=== PATIENT | female | born 1950 | race Asian ===

== ENCOUNTER 2023-04-15 21:05 | Emergency (ER) | payer MEDICARE, OTHER, SELFPAY ==
[2023-04-15 21:07] VITALS: BP 156/71
[2023-04-15 21:16] VITALS: BMI 25.3
[2023-04-15 21:41] LABS: % Basophils 0.2 % (0-2); % Eosinophils 1.6 % (0-6); % Immature Granulocytes 0.2 % (0-0.5); % Lymphocytes 43.9 % (20.5-51.1); % Monocytes 9.9 % (1.7-9.3); % Neutrophils 44.2 % (42.2-75.2); Absolute Eosinophils 0.1 10^3/uL (0-0.7); Absolute Lymphocytes 2.7 10^3/uL (1.2-3.4); Absolute Monocytes 0.6 10^3/uL (0.1-0.6); Absolute Neutrophils 2.7 10^3/uL (1.4-6.5); Mean Corp Hgb Conc. 34.4 g/dL (33.0-37.0); Mean Corpuscular Hgb 35.4 pg (27.0-31.0); Mean Corpuscular Volume 102.9 fL (81.0-99.0); Mean Platelet Volume 9.7 fL (7.4-10.4); Nucleated Red Blood Cells % 0 %; Platelet Count 221 10^3/uL (130-400); Red Blood Cell Count 3.11 10^6/uL (4.20-5.40); Red Cell Dist. Width 12.8 % (11.5-14.5); White Blood Cell Count 6.2 10^3/uL (4.8-10.8)
[2023-04-15 21:55] LABS: ALT (SGPT) 22 U/L (0-35); AST (SGOT) 34 U/L (14-36); Albumin 4.2 g/dl (3.5-5.0); Alkaline Phosphatase 97 U/L (38-126); Blood Urea Nitrogen 12 mg/dl (7-17); Calcium 8.9 mg/dl (8.4-10.2); Carbon Dioxide 30 mmol/L (22-30); Chloride 101 mmol/L (98-107); Estimated Creatinine Clearance 42 ml/min; Glucose 138 mg/dl (70-99); Potassium 4.3 mmol/L (3.5-5.1); Sodium 132 mmol/L (135-145); Total Bilirubin 0.4 mg/dl (0.2-1.3); Total Protein 7.4 g/dl (6.3-8.2); eGFR > 60.00
[2023-04-15 22:06] LABS: Troponin I 0.025 ng/ml
[2023-04-15 22:20] VITALS: BP 130/67
--- NOTE | 2023-04-15 22:27 | ED.GENMED ---
History of Present Illness
General
Chief Complaint: Dizziness
Source: patient
Time Seen by Provider: 04/15/23 22:00
Travel History
Have you had any contact with someone who has COVID-19?: No
Do you have any symptoms of coronavirus? Fever > 100 degrees, chills, cough, shortness of breath, sore throat, loss of taste or smell, muscle aches, or headache?: No
History of Present Illness
History of Present Illness:
Pleasant 72-year-old female that presents with dizziness. This occurred after eating dinner. She states that she felt dizzy and that the room was not spinning. Daughter states she had an episode of vomiting during the event. Denied chest pain or
shortness of breath. Patient denies previous cardiac history. Daughter notes that the blood pressure was slightly elevated during the event. She was still symptomatic upon arrival to the hospital but after fluids, she states that she is
asymptomatic at this time.
Vital signs are stable. Patient not hypoxic
Nursing note reviewed. I agree with nursing documentation up to this point in time.
Home Meds and allergies reviewed.
NUMBER AND COMPLEXITY OF PROBLEMS ADDRESSED AT THE ENCOUNTER
� Chronic conditions affecting care: Hyperlipidemia, hypotension
� Acute Exacerbation and/or Progression of Chronic Illness:
� Differential Diagnosis includes: Syncope, dizziness, vertigo, posterior CVA
AMOUNT AND/OR COMPLEXITY OF DATA TO BE REVIEWED AND ANALYZED
I performed an independent evaluation of the following and my interpretation is:
EKG: EKG shows sinus bradycardia rate of 55, PACs present. Rate of 55. Otherwise normal intervals, normal axis. No evidence of acute ischemia present. When compared with previous EKG dated May 12, 2021, PACs are present.
CT:
X-rays:
Ultrasound:
Laboratory Studies: First troponin 0.025. We will continue to monitor
Other:
Review of other/old records:
Clinical information was obtained by an independent historian:
Prescriptions/Medications Considered but not given:
Further testing considered but not performed:
RISK OF COMPLICATIONS AND/OR MORBIDITY OR MORTALITY OF PATIENT MANAGEMENT
Social determinants of health affecting care: Good Social Support
Discussion with other providers:
Escalation of care including admission/observation vs risk of discharge considered:
CRITICAL CARE NOTE:
Total Time (exclusive of procedures):
Update:
Past History
Past History
ED Past Medical History: Hypercholesterolemia
ED Past Surgical History:
Social History
Tobacco: Non-smoker
Alcohol: None
Drug: None
Living: with family
Phy Exam
General Physical Exam
General Presentation: well appearing and no apparent distress
General Skin: warm and dry
General Habitus: normal
General Mental: alert
General Hydration: appears well hydrated
ENT Exam
ENT Exam: EOMI, pharynx normal, neck supple and normocephalic
Eye Exam
Eye Exam: PERRL, cornea clear and conjunctiva normal
Cardiovascular Exam
Cardiovascular Exam: regular rate/rhythm, no edema, no murmur and normal peripheral pulses
Pulmonary Exam
Pulmonary Exam: lungs clear, no respiratory distress, no rales, no crackles, no rhonchi, no stridor, no wheezing and no cough
Gastrointestinal Exam
Gastrointestinal Exam: normal bowel sounds, non tender, soft, no organomegaly, no pulsatile mass and non distended
Neurological Exam
Neurological Exam: alert, oriented x3, no motor deficits and speech normal
Cerebellar
Cerebellar Function: normal finger to nose
Musculoskeletal Exam
Musculoskeletal Exam: full ROM and no edema
Skin Exam
Skin Exam: normal color, warm/dry, no rash and no petechia
Psychiatric Exam
Psychiatric Exam: normal mood/affect
Course
Orders/Labs/Results
Orders:
Orders
04/15/23 21:24
Electrocardiogram (*1) Urgent
Reason for Study: Vertigo / Dizzy
CT Head W/o Iv Contrast Urgent
Comment:
Reason For Exam: dizziness
04/15/23 21:25
EKG- Treatment ONCE
04/15/23 21:26
Complete Blood Count/With Diff Urgent
Comprehensive Metabolic Panel Urgent
Troponin I Urgent
Urine Culture Reflexed from UA [Urinalysis Reflex To Culture] Urgent
Date Specimen was Collected: 04/15/23
Time Specimen was Collected: 21:25
04/15/23 22:47
Aspirin 325 mg PO NOW STA
04/15/23 23:42
Electrocardiogram (*1) Urgent
Reason for Study: Vertigo / Dizzy
EKG- Treatment ONCE
04/15/23 23:53
Troponin I Urgent
04/16/23 00:36
Orthostatic VS- Treatment ONCE
Abnormal Lab Results
04/15/23
21:26
RBC 3.11 L 10^6/uL
(4.20-5.40)
Hgb 11.0 L g/dL
(12.0-16.0)
Hct 32.0 L %
(37.0-47.0)
MCV 102.9 H fL
(81.0-99.0)
MCH 35.4 H pg
(27.0-31.0)
Monocytes % 9.9 H %
(1.7-9.3)
Sodium 132 L mmol/L
(135-145)
Glucose 138 H mg/dl
(70-99)
04/15/23 21:26
04/15/23 21:26
Vital Signs
Initial and Last Documented VS:
Initial Vital Signs
Temp Pulse Resp BP Pulse Ox
98.0 F 50 16 156/71 98
04/15/23 21:07 04/15/23 21:07 04/15/23 21:07 04/15/23 21:07 04/15/23 21:07
Last Documented Vital Signs
Temp Pulse Resp BP Pulse Ox
98.0 F 56 20 120/65 97
04/15/23 21:07 04/16/23 02:05 04/16/23 02:05 04/16/23 02:05 04/16/23 02:05
*Critical Care Note
Total Time (30-74mins, 75-104mins- exclusive of procedures): Not Applicable
Update Note
Update Note:
04/16/2023 0205 AM: Discussed disposition with patient. She is currently asymptomatic. Daughter is at the bedside. I explained to patient and daughter that given the current testing, I cannot tell her definitively that she did not have a stroke or
would not have another stroke. She states that her symptoms have completely resolved. I did offer her admission for further testing. At this point, after discussing with daughter, she wishes to be discharged home. I will prescribe aspirin. I
will encourage her to follow-up with neurology. I feel the patient has good understanding of discharge instructions. She does understand that there is a possibility of a return of symptoms or worsening symptoms. She will return to the ER with any
change. Patient has no further questions. Daughter has no further questions. Patient being discharged in improved conditions.
ED Attending Note
-
Portions of this chart may have been created with voice recognition software.� Occasional wrong word or��sound alike� substitutions may have occurred due to the inherent limitations of voice recognition software.
Discharge Plan
Departure
Patient Disposition: Home (Routine Discharge)
Date of Disposition: 04/16/23
Time of Disposition: 02:08
Patient with high blood pressure during this ER visit?: No
Discharge Problem:
Dizziness
Instructions: Dizziness, Nonvertigo, (DC)
Prescriptions:
New
aspirin 81 mg capsule
81 mg PO DAILY Qty: 30 0RF
Referrals:
Sailaja Siddiqi, [Active] - Next open appointment
Savanah Ingram CRNP [Family Provider] -
Activity Restrictions/Additional Instructions:
It was a pleasure meeting you and taking part in your care. We hope for your continued healing and wellness.
Please read discharge instructions in their entirety. However, they are for general education and may not describe your exact diagnosis at discharge. Information on your ER visit and medical conditions were discussed with you along with appropriate
follow up information...
If indicated, please take your medications as instructed and indicated on discharge paperwork.
Please schedule a follow up appointment as directed. Call to schedule an appointment
Please return to the emergency department with ANY change in, persisting, or worsening of symptoms. If any of your symptoms do not improve, or persist, or become more severe within 6-12 hours, please return to the emergency department for further
care.
Please return to the emergency department if you develop a headache, neck pain/stiffness, fever greater than 100.4F, chest pain, shortness of breath, persistent nausea, vomiting, slurred speech, difficulty walking, numbness/tingling, weakness, signs
of infection or any other symptoms that are worrisome to you.
If you have any questions or concerns please do not hesitate to call the Hospital at or E-mail me directly at [email or web address]
Interventions
Interventions:
*Risk Screen - Suicide Last Done: 04/15/23 21:07
*General Assessment Last Done: 04/15/23 21:07
*Neglect/Abuse Screening Last Done: 04/15/23 21:07
ED- Fall Risk Assessment Last Done: 04/15/23 21:07
*ED COVID-19 Vaccine History Last Done: 04/15/23 21:07
*Nursing Disposition Last Done: 04/16/23 02:22
ED- Neurological Assessment Last Done: 04/15/23 22:18
ED- Cardiac Assessment Last Done: 04/15/23 22:18
Discharge Date and Time
Discharge Date/Time: 04/16/23 02:23
[2023-04-15] MEDS: ASPIRIN 325 MG PO (23:51)
[2023-04-16 00:31] LABS: Troponin I < 0.012 ng/ml
[2023-04-16 00:53] VITALS: BP 124/81; BP 136/51; BP 140/77; PULSE 77; PULSE 94; PULSE 96
[2023-04-16 01:06] VITALS: BP 119/51
[2023-04-16 01:28] LABS: Urine Albumin Negative (Neg - Trace); Urine Bilirubin Negative (Negative); Urine Character Clear (Clear); Urine Color Straw; Urine Glucose Negative (Negative); Urine Ketone Negative (Negative); Urine Leukocyte Negative (Negative); Urine Nitrite Negative (Negative); Urine Occult Blood Negative (Negative); Urine Specific Gravity 1.005 (<1.030); Urine Urobilinogen Negative (Neg - 1+)
[2023-04-16 02:05] VITALS: BP 120/65
== END 2023-04-16 02:23 | disposition home or self-care (01) ==
LOC: EMR 21:05
PROVIDERS: Student in an Organized Health Care Education/Training Program; EMERGENCY PHYSICIAN Student in an Organized Health Care Education/Training Program; FAMILY PHYSICIAN Nurse Practitioner Primary Care
DX: R42 Dizziness and giddiness (principal); E78.00 Pure hypercholesterolemia, unspecified
CPT/HCPCS: 99284; 70450; 80053; 81003; 84484; 85025; 93005

== ENCOUNTER 2023-11-21 23:57 | Emergency (ER) | payer MEDICARE, SELFPAY ==
[2023-11-21 23:59] VITALS: BP 120/50
[2023-11-22] MEDS: TORADOL 15 MG IV (00:20)
--- NOTE | 2023-11-22 00:23 | ED.MUSCINJ ---
HPI-Injury
General
Chief Complaint: Extremity Pain (non-traumatic)
Time Seen by Provider: 11/22/23 00:03
History of Present Illness-Injury
Initial Injury comments:
73-year-old female with history of hyperlipidemia presenting to the emergency department for bilateral leg cramping and pain. Patient reports that she flew from the [facility] on Monday, 3 days ago. 3 hours ago, started to have cramping in her
thighs. Notes that she has had issues with this in the past, however not as severe. Denies any numbness or tingling to her extremities. Denies any inciting injury or trauma. Denies any history of blood clots. Denies any chest pain or difficulty
breathing. She has not taken any medication for the symptoms. Denies abdominal pain or GI symptoms. Denies additional acute medical complaints
Past History
Past History
ED Past Medical History: Hypercholesterolemia
ED Past Surgical History:
Social History
Tobacco: Non-smoker
Alcohol: None
Drug: None
Living: with family
Phy Exam
Physical Exam
Physical Exam:
General: Well-appearing, no clinical signs of dehydration, nontoxic and in no acute distress
HEENT: protecting airway
Neck: appears supple
CV: Normal heart rate, regular rhythm
Resp: No accessory muscle use, no increased work of breathing, lungs clear to auscultation bilaterally
Abd: Soft and non-distended, no tenderness to palpation
Extremities: No deformities, no swelling, no erythema, pulses and sensation intact
Neuro: alert, no focal neurologic deficit
: deferred
Rectal: deferred
Psych: Normal affect
Skin: Intact
Injury Course
Orders/Labs/Results
Orders:
Orders
11/22/23 00:11
0.9% Sodium Chloride 1000 ml [Nss] 1,000 ml IV BOLUS
Ketorolac [Toradol] 15 mg IV NOW STA
11/22/23 00:25
CPK [Creatine Phosphokinase] Urgent
Complete Blood Count/With Diff Urgent
Comprehensive Metabolic Panel Urgent
Abnormal Lab Results
11/22/23
00:25
RBC 3.04 L 10^6/uL
(4.20-5.40)
Hgb 10.6 L g/dL
(12.0-16.0)
Hct 30.9 L %
(37.0-47.0)
MCV 101.6 H fL
(81.0-99.0)
MCH 34.9 H pg
(27.0-31.0)
Neutrophils % 31.4 L %
(42.2-75.2)
Lymphocytes % 54.4 H %
(20.5-51.1)
Monocytes % 10.3 H %
(1.7-9.3)
Glucose 117 H mg/dl
(70-99)
Creatine Kinase 343 H U/L
(30-135)
11/22/23 00:25
11/22/23 00:25
MDM/Problems Addressed
MDM/Problems Addressed:
73-year-old female with hyperlipidemia presenting for bilateral leg pain/thigh pain. Vital signs on arrival are normal.
On exam patient is well-appearing, no acute distress or discomfort. Overall benign examination of the lower extremities. No swelling or deformities. No erythema or warmth or infectious findings. No neurovascular compromise with intact sensation
and pulses. No concern for DVT, without active cancer, no bedridden status or major surgery, no calf swelling, entire leg not swollen, no localized tenderness to the leg, no pitting edema. In addition, pain is bilateral, making DVT diagnosis less
likely. Suspect dehydration component versus musculoskeletal component. Will treat with IV fluids and Toradol. Will screen with laboratory analysis including CPK to rule out rhabdomyolysis.
Labs are unremarkable. On reassessment patient is reporting symptom improvement. At this time continue to suspect musculoskeletal quality. Feel stable for discharge with continued outpatient follow-up and supportive therapy. Return precautions
discussed and patient verbalized understanding
*Critical Care Note
Total Time (30-74mins, 75-104mins- exclusive of procedures): Not Applicable
ED Attending Note
-
Portions of this chart may have been created with voice recognition software.� Occasional wrong word or��sound alike� substitutions may have occurred due to the inherent limitations of voice recognition software.
Discharge Plan
Departure
Patient Disposition: Home (Routine Discharge)
Patient with high blood pressure during this ER visit?: No
Condition: Good
Discharge Problem:
Cramps, muscle, general
Instructions: Dehydration, Adult ED, Muscle spasms (muscle cramps)
Prescriptions:
No Action
aspirin 81 mg capsule
81 mg PO DAILY Qty: 30 0RF
Referrals:
UNKNOWN - PT DOES,NOT KNOW [Family Provider] -
Activity Restrictions/Additional Instructions:
You were seen in the emergency department for pain in your legs
You were found to have normal lab work. We suspect that you are having muscle cramps from mild dehydration. Please continue to drink fluids.
Please follow-up closely with your primary care physician.
Return to the emergency department for any worsening of your symptoms, or any development of chest pain, difficulty breathing, abdominal pain with persistent vomiting and inability to tolerate food or liquid by mouth (concern for dehydration),
weakness, headache or confusion, fever greater than 100.4, or any additional symptoms that are concerning to you.
Thank you for choosing [facility].
Interventions
Interventions:
*Risk Screen - Suicide Last Done: 11/21/23 23:59
*General Assessment Last Done: 11/22/23 00:35
*Neglect/Abuse Screening Last Done: 11/22/23 00:35
*ED COVID-19 Vaccine History Last Done: 11/22/23 00:35
*Nursing Disposition Last Done: 11/22/23 01:40
ED-Skin Assessment Last Done: 11/22/23 00:35
ED-Peripheral Vascular Assessment Last Done: 11/22/23 00:35
ED-Musculoskeletal Assessment Last Done: 11/22/23 00:35
Discharge Date and Time
Discharge Date/Time: 11/22/23 01:40
Print Language: TURKISH
[2023-11-22] MEDS: NSS 1000 IV (00:26)
[2023-11-22 00:40] LABS: Hematocrit 30.9 % (37.0-47.0); Hemoglobin 10.6 g/dL (12.0-16.0); Mean Corp Hgb Conc. 34.3 g/dL (33.0-37.0); Mean Corpuscular Hgb 34.9 pg (27.0-31.0); Mean Corpuscular Volume 101.6 fL (81.0-99.0); Mean Platelet Volume 9.3 fL (7.4-10.4); Platelet Count 242 10^3/uL (130-400); Red Blood Cell Count 3.04 10^6/uL (4.20-5.40); Red Cell Dist. Width 13.2 % (11.5-14.5); White Blood Cell Count 4.9 10^3/uL (4.8-10.8)
[2023-11-22 00:47] LABS: ALT (SGPT) 27 U/L (0-35); AST (SGOT) 36 U/L (14-36); Albumin 4.2 g/dl (3.5-5.0); Alkaline Phosphatase 104 U/L (38-126); Blood Urea Nitrogen 15 mg/dl (7-17); Calcium 9.1 mg/dl (8.4-10.2); Carbon Dioxide 24 mmol/L (22-30); Chloride 101 mmol/L (98-107); Creatine Phosphokinase 343 U/L (30-135); Glucose 117 mg/dl (70-99); Potassium 4.3 mmol/L (3.5-5.1); Sodium 136 mmol/L (135-145); Total Bilirubin 0.4 mg/dl (0.2-1.3); Total Protein 6.8 g/dl (6.3-8.2); eGFR > 60.00
[2023-11-22 00:58] LABS: % Basophils 0.4 % (0-2); % Eosinophils 3.3 % (0-6); % Immature Granulocytes 0.2 % (0-0.5); % Lymphocytes 54.4 % (20.5-51.1); % Monocytes 10.3 % (1.7-9.3); % Neutrophils 31.4 % (42.2-75.2); Absolute Eosinophils 0.2 10^3/uL (0-0.7); Absolute Lymphocytes 2.6 10^3/uL (1.2-3.4); Absolute Monocytes 0.5 10^3/uL (0.1-0.6); Absolute Neutrophils 1.5 10^3/uL (1.4-6.5); Nucleated Red Blood Cells % 0 %
--- NOTE | 2023-11-22 03:06 | DOWNTIME ---
There was a [employer] Client [employer] Downtime on 11/22/2023 from 0100 to 11/22/2023 at 0300. Downtime documentation of patient's care, including medication administrations, has been reconciled in the electronic record per guidelines. Refer to the
patient's paper chart under the miscellaneous tab to see printed paper medication records and downtime forms.
== END 2023-11-22 01:40 | disposition home or self-care (01) ==
LOC: EMR 23:57
PROVIDERS: EMERGENCY PHYSICIAN Student in an Organized Health Care Education/Training Program
DX: R25.2 Cramp and spasm (principal); E78.00 Pure hypercholesterolemia, unspecified
CPT/HCPCS: 96374; 96361; 99284; 80053; 82550; 85025